=== PATIENT | female | born 1995 | race Caucasian/White ===

== ENCOUNTER 2016-06-27 13:43 | Emergency (ER) | payer OTHER ==
[~2016-06-27] VITALS: Wt 72.0 kg
[~2016-06-27 13:43] MED LIST: ACET500C5 PO; IBUP200C11 PO; PRENAT PO
[2016-06-27 15:02] LABS: URINE BLOOD (Dip) POC 2+ (NEGATIVE)
[2016-06-27] MEDS ORDERED: IBUPROFEN 600 MG TAB PO ONE (16:00)
[2016-06-27] MEDS ORDERED: CEFTRIAXONE 1 GM INJ IM ONE (16:00)
[2016-06-27] MEDS ORDERED: IBUP-1542 PO (16:12)
[2016-06-27] MEDS ORDERED: BACTDS PO (16:12)
--- NOTE | 2016-06-27 16:18 | ERD ---
ER Documentation Chief Complaint Date/Time DATE: 06/27/16 TIME: 16:15 Chief Complaint R SIDED FLANK PAIN X 1 WEEK HPI This is a 20-year-old female that presents to the ER with urinary frequency and dysuria for the last week. Patient also developed right-sided flank pain. She denies any fevers or chills. Patient did admit to nausea and nonbilious nonbloody vomiting. Patient denies any diarrhea. Her last menstrual period was on June 09. Patient denies any abdominal pain. Denies vaginal discharge. ROS 12 point review of systems was done, all negative except per HPI. Medications Home Meds Active Scripts Ibuprofen* (Motrin*) 600 Mg Tab, 600 MG PO Q6, #30 TAB Prov:DARCIE LEVI 06/27/16 Sulfamethoxazole-Trimethoprim* (Bactrim* DS) 800-160 Mg Tab, 1 TAB PO BID for 10 Days, TAB Prov:DARCIE LEVI 06/27/16 Reported Medications Acetaminophen* (Tylophen*) 500 Mg Capsule, 500 MG PO Q6H Y for PAIN LEVEL 1-5, TAB 05/27/15 Ibuprofen* (Advil*) 200 Mg Capsule, 200 MG PO Q6H Y for PAIN, CAP 05/27/15 Multivit/Min/Fol Ac/Iron/Pren* ( S*) 1 Tab Tab, 1 TAB PO DAILY, TAB 05/24/15 Allergies Allergies: Coded Allergies: No Known Allergy (Unverified , 05/24/15) PMhx/Soc History of Surgery: No Anesthesia Reaction: No Hx Neurological Disorder: No Hx Respiratory Disorders: No Hx Cardiac Disorders: No Hx Psychiatric Problems: No Hx Miscellaneous Medical Probl: No Hx Alcohol Use: No Hx Substance Use: No Hx Tobacco Use: No Smoking Status: Never smoker Physical Exam Vitals Vital Signs Date Time Temp Pulse Resp B/P Pulse Ox O2 Delivery O2 Flow Rate FiO2 06/27/16 13:47 98.0 97 18 120/63 99 Physical Exam GENERAL: The patient is well developed and appropriate for usual state of health , in no apparent distress. HEENT: Atraumatic. CHEST: Clear to auscultation bilaterally. There are no rales, wheezes or rhonchi. HEART: Regular rate and rhythm. No murmurs, clicks, rubs or gallops. ABDOMEN: Soft, nontender and nondistended. Good bowel sounds. No rebound or guarding. No gross peritonitis. No gross organomegaly or masses. No Lindsay sign or McBurney point tenderness. BACK: No midline or flank tenderness. No CVA tenderness NEURO: Alert and oriented. Results 24 hrs Laboratory Tests Test 06/27/16 15:04 Bedside Urine Blood 2+ Bedside Urine Glucose (UA) Negative Bedside Urine Ketones (LAB) Negative Bedside Urine Leukocyte Esterase (L 3+ Bedside Urine Nitrite (LAB) Positive Bedside Urine Protein (LAB) 2+ Bedside Urine pH (LAB) 6.0 Current Medications Medications (Trade) Dose Ordered Sig/Kim Route PRN Reason Start Time Stop Time Status Last Admin Dose Admin Ceftriaxone Sodium (Rocephin) 1 gm ONCE ONCE IM 06/27/16 16:00 06/27/16 16:01 DC 06/27/16 15:54 Ibuprofen (Motrin) 600 mg ONCE ONCE PO 06/27/16 16:00 06/27/16 16:01 DC 06/27/16 16:01 Procedures/MDM This is a 20-year-old female presents to the ER with urinary frequency and dysuria with associated cramping. Patient more likely has pyelonephritis. She was given a shot of Rocephin here in the ER initially sent home with Cipro. Suspicion for nephrolithiasis is low. Patient does not have any abdominal pain I doubt acute abdomen. Patient additionally want to be tested for STDs. I sent her urine for chlamydia and gonorrhea. Patient denies any recent exposure to STDs. Patient is afebrile and well-appearing. She is stable for outpatient therapy. Patient is to follow-up with her primary care doctor within 1-2 days or return to ER if symptoms worsen. Medical decision making sure with the patient understands and agrees with plan. Departure Diagnosis: Primary Impression: Pyelonephritis Condition: Stable Patient Instructions: Pyelonephritis, Female (Adult) Additional Instructions: Call your primary care doctor TOMORROW for an appointment during the next 1-2 days.See the doctor sooner or return here if your condition worsens before your appointment time. DARCIE LEVI Jun 27, 2016 16:18
[2016-06-27] MEDS ORDERED: ONDA4TAB14 PO (16:19)
[2016-06-27] MEDS ORDERED: ACETAMINOPHEN 500 MG TAB PO STA (16:20)
[2016-06-27 16:24] VITALS: PULSE 118; TEMP 103
== END 2016-06-27 16:20 | disposition left against medical advice (07) ==
LOC: FTE 13:43
DX: N12 Tubulo-interstitial nephritis, not specified as acute or chronic (principal); R11.2 Nausea with vomiting, unspecified
CPT/HCPCS: 81003; 87591; J0696; Z7610; 96372

== ENCOUNTER 2016-10-08 08:33 | Emergency (ER) | payer MEDICAID, OTHER ==
[~2016-10-08] VITALS: Wt 79.0 kg
[~2016-10-08 08:33] MED LIST changes: +BACTDS PO; +IBUP-1542 PO; +NPH10OT RIGHT EAR; +ONDA4TAB14 PO; +SODI104S2 NASAL
--- NOTE | 2016-10-08 09:18 | ERD ---
ER Documentation Chief Complaint Date/Time DATE: 10/08/16 TIME: 09:17 Chief Complaint SWELLING ON RIGHT RING FINGER, RIGHT ARM NUMBNESS, ONSET THIS AM HPI 21-year-old female comes emergency department with the same room entrapment on the right fourth digit since 2 weeks ago. She states that she has had this ring for very long time, the last couple of weeks it has been able to be removed. There is localized pain and swelling. She has not had any trauma to the finger. She denies paresthesias or weakness. ROS All systems reviewed and are negative except as per history of present illness. Medications Home Meds Active Scripts Sodium Chloride* ([place]*) 45 Ml [place], 1 SPRAY NASAL . NEEDED Y for NASAL CONGESTION, #1 BOTTLE Prov:NIVIA THOMPSON PA-C 05/23/15 Neomycin/Polymyxin/Hydrocort* (Cortisporin* Otic) 10 Ml Susp, 4 DROP RIGHT EAR QID for 7 Days, EA Prov:MAREK VOGEL I. [employer] WORK[employer] 05/22/15 Reported Medications Multivit/Min/Fol Ac/Iron/Pren* ( S*) 1 Tab Tab, 1 TAB PO DAILY, TAB 03/16/15 Allergies Allergies: Coded Allergies: No Known Drug Allergy (Verified Allergy, Unknown, 05/12/09) PMhx/Soc Hx Alcohol Use: No Hx Substance Use: No Physical Exam Vitals Vital Signs Date Time Temp Pulse Resp B/P Pulse Ox O2 Delivery O2 Flow Rate FiO2 10/08/16 10:52 97.9 52 14 109/69 98 Room Air 10/08/16 08:39 97.3 63 17 122/58 98 Physical Exam General: Well-developed, well-nourished. The patient appears in no acute distress. HEENT: Head is normocephalic, atraumatic. No scleral icterus. Neck: Supple. Nontender. Lungs: Clear to auscultation. Normal air movement. Heart: Regular rate and rhythm. S1 and S2 are normal. No murmurs, gallops, or rubs. Abdomen: Nondistended. Extremities: Ring in right 4th digit is entrapped, capillary refill less than 2 seconds. Fingers atraumatic. Neurologic: Alert and oriented 3. No focal deficits. Normal speech and gait. Skin: Normal turgor. No rash or lesions. Results 24 hrs Current Medications Medications (Trade) Dose Ordered Sig/Kim Route PRN Reason Start Time Stop Time Status Last Admin Dose Admin Acetaminophen/ Hydrocodone Bitart ([place] (10)) 1 tab ONCE ONCE PO 10/08/16 10:00 10/08/16 10:01 DC 10/08/16 10:00 Ondansetron HCl (Zofran Odt) 4 mg ONCE STAT ODT 10/08/16 09:32 10/08/16 09:33 DC 10/08/16 10:01 Bacitracin (Bacitracin Oint (Ud)) 1 applic ONCE ONCE TOP 10/08/16 11:00 10/08/16 11:01 DC 10/08/16 10:34 Diphtheria/ Tetanus/Acell Pertussis (Adacel) 0.5 ml ONCE ONCE IM* 10/08/16 11:00 10/08/16 11:01 DC 10/08/16 10:49 Procedures/MDM ED COURSE: Pt's ring was removed via the fire department, no ring cutter blade was available at the time. Patient's tetanus was updated. Patient was neurovascular intact post ring removal. Clean dressing with bacitracin was applied. MDM: 21 yo female comes in with a restrictive jewelry, she states that she was unable to move for several weeks, a ring cutter was used and she was neurovascular intact. There is no evidence of cellulitis, cyanosis, infection, tendon rupture, fracture. Departure Diagnosis: Primary Impression: Constrictive jewelry of finger Condition: RACIEL Kwok PA-C October 08, 2016 09:18
[2016-10-08] MEDS ORDERED: ONDANSETRON (ODT) 4 MG TAB ODT STA (09:32)
[2016-10-08] MEDS ORDERED: HYDROCODONE/APAP (10/325) TAB PO ONE (10:00)
[2016-10-08 10:52] VITALS: BP 109/69; PULSE 52; RESP 14; TEMP 97.9
[2016-10-08] MEDS ORDERED: DIPHTH/TET/ACEL PERTUSS (ADULT) 0.5 ML VIAL IM* ONE (11:00)
[2016-10-08] MEDS ORDERED: BACITRACIN 0.9 GM OINT TOP ONE (11:00)
== END 2016-10-08 10:51 | disposition home or self-care (01) ==
LOC: MERGE 08:33 → FTE 08:33
DX: S60.444A External constriction of right ring finger, initial encounter (principal); W49.04XA Ring or other jewelry causing external constriction, initial encounter; Y92.9 Unspecified place or not applicable; Z23 Encounter for immunization
CPT/HCPCS: 90715; Z7610; 90471